=== PATIENT | male | born 1965 | race Caucasian/White ===

== ENCOUNTER 2016-08-14 21:58 | Emergency (ER) | payer OTHER ==
[2016-08-14 22:18] VITALS: BP 131/75
[2016-08-14] MEDS ORDERED: Acetaminophen/oxyCODONE 325-5 MG Tab PO ONE (22:23)
[2016-08-14] MEDS ORDERED: Diphtheria,Pertussis(Acell),Tetanus Vaccine 0.5 ML SDV IM ONE (22:23)
--- NOTE | 2016-08-14 22:31 | EDM.PDOC ---
ED HPI GENERAL MEDICAL PROBLEM - General Chief Complaint: ENT Problem Stated Complaint: LT EYE PROBLEM Time Seen by Provider: 08/14/16 22:20 Source of Information: Reports: Patient History Limitations: Reports: No Limitations - History of Present Illness INITIAL COMMENTS - FREE TEXT/NARRATIVE: 51 yo male was in the shower tonight and rubbed his left eye. He has pain in that eye since with no change in his vision. Onset: Today Onset Date: 08/14/16 Onset Time: 21:30 Duration: Minutes:, Constant Location: Reports: Face Quality: Reports: Sharp Severity: Moderate Improves with: Reports: None Worsens with: Reports: None Context: Reports: Other (got something in eye while in the shower) Associated Symptoms: Reports: No Other Symptoms Treatments [employer]ESS[employer]: Reports: Other (see below) (none) - Related Data Allergies Allergy/AdvReac Type Severity Reaction Status Date / Time No Known Allergies Allergy Verified 08/14/16 22:15 Home Meds: Home Meds NK [No Known Home Meds] 08/14/16 [History] ED ROS GENERAL - Review of Systems Review Of Systems: See Below Constitutional: Reports: No Symptoms HEENT: Reports: Eye Pain (left eye). Denies: Eye Discharge, Vision Change Skin: Reports: No Symptoms Neurological: Reports: No Symptoms ED EXAM GENERAL W FULL EYE - Physical Exam Exam: See Below Exam Limited By: No Limitations General Appearance: Alert, WD/WN, No Apparent Distress Eye Exam: Left Eye: Conjunctival Injection, Bilateral Eye: EOMI, PERRL Eyelids: Bilateral: Normal Appearance Conjunctiva & Sclera: Right: Normal Appearance, Left: Injected Cornea Exam: Left: Corneal Abrasion (Noted after fluorescein staining only. Uptake superficial and around the outer edge of that left cornea.) Extraocular Movements: Bilateral: Intact Pupillary Size: Bilateral: 3 mm Pupillary Reaction: Bilateral: Brisk Anterior Chamber: Bilateral: Normal Appearance Ears: Normal External Exam, Normal Canal, Hearing Grossly Normal Nose: Normal Inspection, Normal Mucosa, No Blood Throat/Mouth: Normal Voice, No Airway Compromise Head: Atraumatic, Normocephalic Neck: Normal Inspection Neurological: Alert, Oriented, CN II-XII Intact, Normal Cognition, No Motor/ Sensory Deficits Psychiatric: Normal Affect, Normal Mood Skin Exam: Warm, Dry, Intact, Normal Color, No Rash Lymphatic: No Adenopathy Course - Vital Signs Text/Narrative:: Adacel IM, Percocet 1 po, sulfacetamide ointment applied to the left eye. Last Recorded V/S: Last Vital Signs Temp 36.7 C 08/14/16 22:05 Pulse 80 08/14/16 22:05 Resp 16 08/14/16 22:05 BP 131/75 08/14/16 22:05 Pulse Ox 97 08/14/16 22:05 - Orders/Labs/Meds Orders: Active Orders 24 hr Category Date Time Status Vaccines to be Administered [RC] PER UNIT ROUTINE Care 08/14/16 22:24 Active Meds: Medications Discontinued Medications Generic Name Dose Route Start Last Admin Trade Name Freq PRN Reason Stop Dose Admin Diphtheria/Tetanus/Acell Pertussis 0.5 ml 08/14/16 22:23 Adacel IM 08/14/16 22:24 .ONCE ONE Oxycodone/Acetaminophen 1 tab 08/14/16 22:23 Percocet 325-5 Mg PO 08/14/16 22:24 ONETIME ONE Departure - Departure Time of Disposition: 22:33 Disposition: Home, Self-Care 01 Condition: good Clinical Impression: Corneal abrasion, left Qualifiers: Encounter type: initial encounter Qualified Code(s): S05.02XA - Injury of conjunctiva and corneal abrasion without foreign body, left eye, initial encounter - Discharge Information Referrals: PCP,None [Primary Care Provider] - Forms: ED Department Discharge Additional Instructions: Put antibiotic ointment in your eye every 6-8 hrs for a day. No eye rubbing. Ibuprofen and/or acetaminophen as needed for pain relief. Avoid bright lights. Recheck tomorrow if not improved. - My Orders Last 24 Hours: My Active Orders 08/14/16 22:24 Vaccines to be Administered [RC] PER UNIT ROUTINE - Assessment/Plan Last 24 Hours: My Active Orders 08/14/16 22:24 Vaccines to be Administered [RC] PER UNIT ROUTINE
== END 2016-08-14 22:50 | disposition home or self-care (01) ==
LOC: FB.ED 21:58
DX: S05.02XA Injury of conjunctiva and corneal abrasion without foreign body, left eye, initial encounter (principal); Z23 Encounter for immunization; X58.XXXA Exposure to other specified factors, initial encounter
CPT/HCPCS: 90715; 99282; A9270; 90471